=== PATIENT | male | born 1940 | race Two or more races ===

== ENCOUNTER 2023-03-28 07:00 | Day surgery (SDC) | payer OTHER | END 2023-03-28 10:50 | disposition home or self-care (01) | LOC: AMB-ENDOS 07:00 | PROVIDERS: ATTEND Surgery | DX: D12.0 Benign neoplasm of cecum (principal); K57.30 Diverticulosis of large intestine without perforation or abscess without bleeding; K92.1 Melena; D64.9 Anemia, unspecified; Z20.822 Contact with and (suspected) exposure to COVID-19; Z88.0 Allergy status to penicillin ==